=== PATIENT | female | born 1985 | race Two or more races ===

== ENCOUNTER 2020-10-14 23:28 | Emergency (ER) | payer MEDICAID ==
[~2020-10-14] VITALS: Ht 167.6 cm; Wt 90.7 kg
[2020-10-15] MEDS ORDERED: ALBUTEROL SULF 2.5 MG/0.5ML(0.5%) NEB SOLN NEB ONE (04:15)
[2020-10-15] MEDS ORDERED: IPRATROPIUM BROM 0.5 MG/2.5ML INH SOL NEB ONE (04:15)
[2020-10-15] MEDS ORDERED: guaiFENesin-DM 100/10mg/5ml SYR PO ONE (05:00)
[2020-10-15 05:10] VITALS: BP 141/74
== END 2020-10-15 06:11 | disposition home or self-care (01) ==
LOC: ER 23:28
DX: J06.9 Acute upper respiratory infection, unspecified (principal); Z20.822 Contact with and (suspected) exposure to COVID-19
CPT/HCPCS: 36415; 71045; 87426; 94640; 99284; J7644

== ENCOUNTER 2021-04-14 13:13 | Emergency (ER) | payer SELFPAY ==
[~2021-04-14] VITALS: Ht 167.6 cm; Wt 90.7 kg
[2021-04-14 14:27] VITALS: BP 140/83
[2021-04-14] MEDS ORDERED: methylPREDNISolone SOD SUCC 125 MG/2 ML VL IM ONE (14:45)
[2021-04-14] MEDS ORDERED: cefTRIAXone SOD 1,000 MG VL IM ONE (14:45)
[2021-04-14] MEDS ORDERED: PRED20TA2 PO (15:12)
[2021-04-14] MEDS ORDERED: PROM1SOL4 PO (15:12)
== END 2021-04-14 15:25 | disposition home or self-care (01) ==
LOC: ER 13:13
DX: J03.90 Acute tonsillitis, unspecified (principal); J04.0 Acute laryngitis
CPT/HCPCS: 96372; 99284; J0696; J2930

== ENCOUNTER 2021-04-19 12:55 | Emergency (ER) | payer MEDICAID ==
[~2021-04-19] VITALS: Ht 167.6 cm; Wt 90.7 kg
[~2021-04-19 12:55] MED LIST: PRED20TA2 PO; PROM1SOL4 PO
[2021-04-19 14:52] VITALS: BP 121/87
[2021-04-19] MEDS ORDERED: DOXY-286 PO (15:00)
[2021-04-19] MEDS ORDERED: BENZ100C19 PO (15:00)
[2021-04-19] MEDS ORDERED: methylPREDNISolone SOD SUCC 125 MG/2 ML VL IM ONE (15:00)
== END 2021-04-19 15:38 | disposition home or self-care (01) ==
LOC: ER 12:55
DX: J06.9 Acute upper respiratory infection, unspecified (principal); Z20.822 Contact with and (suspected) exposure to COVID-19
CPT/HCPCS: 36415; 71045; 87426; 96372; 99284; J2930

== ENCOUNTER 2021-08-22 09:36 | Emergency (ER) | payer MEDICAID ==
[~2021-08-22] VITALS: Ht 167.6 cm; Wt 83.9 kg
[~2021-08-22 09:36] MED LIST changes: +BENZ100C19 PO; +DOXY-286 PO
[2021-08-22 11:40] VITALS: BP 119/76
[2021-08-22 11:47] LABS: Basophils # (auto) 0 10 ^3/uL (0-0.2); Basophils % (auto) 0.4 % (0.0-2.0); Eosinophils # (auto) 0.3 10 ^3/uL (0-0.8); Eosinophils % (auto) 4.6 % (0.0-7.0); Hematocrit 40.7 % (36.0-46.0); Hemoglobin 13.5 g/dL (12.2-16.2); Lymphocytes # (auto) 1.9 10 ^3/uL (0.4-5.4); Lymphocytes % (auto) 29.8 % (10.0-50.0); Mean Corpuscular Hemoglobin 28.4 pg (28.0-32.0); Mean Corpuscular Hgb Conc. 33.3 g/dL (32.0-36.0); Mean Corpuscular Volume 85.4 fL (80.0-100.0); Monocytes # (auto) 0.3 10 ^3/uL (0-1.3); Monocytes % (auto) 4.6 % (0.0-12.0); Neutrophils # (auto) 3.9 10 ^3/uL (1.6-8.6); Neutrophils % (auto) 60.6 % (37.0-80.0); Red Blood Cells 4.76 10^6/uL (4.0-5.20); Red Cell Distribution Width 13.7 % (11.8-14.3); White Blood Cell 6.4 10^3/uL (4.4-10.8)
[2021-08-22 12:33] LABS: Albumin 3.4 g/dL (3.4-5.0); BUN/Creatinine Ratio 10.3; Calcium 8.8 mg/dL (8.5-10.1); Potassium 4.3 mmol/L (3.5-5.1)
[2021-08-22 12:36] LABS: Bilirubin, Total 0.4 mg/dL (0.2-1.0); Total Protein 7.4 g/dL (6.4-8.2)
[2021-08-22 12:52] LABS: Urine Bacteria FEW /hpf (None Seen); Urine Blood Negative /uL (Negative); Urine Mucus FEW (None Seen); Urine Specific Gravity 1.027 (1.001-1.035); Urine WBC 1 /hpf (0 - 5)
== END 2021-08-22 14:43 | disposition home or self-care (01) ==
LOC: ER 09:36
DX: R10.11 Right upper quadrant pain (principal); Z88.0 Allergy status to penicillin; Z98.51 Tubal ligation status
CPT/HCPCS: 36415; 74176; 80053; 81001; 81025; 83690; 85025